=== PATIENT | male | born 1985 | race Caucasian/White ===

== ENCOUNTER 2021-03-23 03:02 | Emergency (ER) | payer OTHER, SELFPAY ==
--- NOTE | ~2021-03-23 | XR_ITS ---
EXAMINATION: XR HAND/WRIST, RIGHT CLINICAL INFORMATION: Rule out fracture COMPARISON: None TECHNIQUE: 3 views of the right hand/wrist FINDINGS: There is an angulated appearance of the fifth metacarpal neck. This has the appearance of a chronic healed fracture. No acute fracture is seen. Joint spaces are maintained. The carpal rows are well aligned. The soft tissues are unremarkable. XR/XR hand wrist RT IMPRESSION: No evidence of acute fracture or malalignment.
[2021-03-23 03:16] VITALS: BP 123/84; PULSE 114; RESP 18; TEMP 37; O2SAT 96; BMI 29.8
--- NOTE | 2021-03-23 03:58 | ED.EXTPRO ---
HPI - Extremity Problem General Chief complaint: Extremity Injury, Upper Stated complaint: Hand Injury Time Seen by Provider: 03/23/21 03:29 Source: patient Mode of arrival: ambulatory Limitations: no limitations History of Present Illness HPI Narrative: Patient comes emergency room complaining of right hand pain. Patient states that earlier this morning, patient was drinking, patient states that the bottom of his jeans got stuck in his shoe, patient tripped and fell. Patient tried hanging onto the rail, however he hit his hand and his fingers. No complaining of localized hand pain. Patient states that he did not hit his head, did not lose consciousness., patient states that he did hit his head, however when I spoke to him, he denied it. Patient denies headache, neck pain, denies being on blood thinners. MD Complaint: extremity pain Related Data Previous Rx's Medication Instructions Recorded acetaminophen 650 mg PO Q8H PRN #14 tab 03/23/21 Allergies Allergy/AdvReac Type Severity Reaction Status Date / Time tramadol Allergy Rash Verified 03/23/21 03:15 ibuprofen AdvReac Diarrhea Verified 03/23/21 03:15 Review of Systems Review of Systems: Constitutional : No Weight loss, No Fever, No Chills, No Night Sweats, No Fatigue, No Malaise ENT/Mouth : No Hearing loss, No Ear Pain, No Nasal Congestion, No Sinus Pain, No Hoarseness, No sore throat, No Rhinorrhea, No Swallowing Difficulty Eyes: No Eye Pain, No Swelling, No Redness, No Foreign Body, No Discharge, No Vision Changes Cardiovascular : No Chest Pain, No SOB, No Dyspnea on Exertion, No Orthopnea, No Edema, No Palpitations Respiratory : No Cough, No Sputum, No Wheezing, No Smoke Exposure, No Dyspnea Gastrointestinal : No Nausea, No Vomiting, No Diarrhea, No Constipation, No abdominal Pain, No Hematochezia, No Melena Genitourinary : no irregular bleeding, No Dysuria, No Urinary Frequency, No Hematuria, No Urinary Incontinence, No Urgency, No Flank Pain, No Urinary Flow Changes, No Hesitancy Musculoskeletal : Complaining of right-sided hand pain dorsal aspect, No Myalgias, No Joint Swelling Skin : No Skin Lesions, No rash Neuro : No Weakness, No Numbness, No Paresthesias, No Loss of Consciousness, No Dizziness, No Headache Psych : No Anxiety/Panic, No Depression, No SI/HI/AH/VH, No Social Issues, Heme/Lymph: No Bruising, No Bleeding,No Lymphadenopathy Endocrine : No Polyuria, No Polydipsia, No Temperature Intolerance [facility] Past Medical History Medical History Diabetes GERD (gastroesophageal reflux disease) IBS (irritable bowel syndrome) Social History Social History Advance Directives: No Advance Directives Information Provided: No Physical Exam Vital Signs: Vital Signs: Last Vital Signs Temp 98.6 F 03/23/21 03:16 Pulse 114 H 03/23/21 03:16 Resp 18 03/23/21 03:16 BP 123/84 03/23/21 03:16 Pulse Ox 96 03/23/21 03:16 Body Mass Index 29.8 Appearance: Alert. Oriented X3. No acute distress. Eyes: Pupils equal, round and reactive to light. ENT: Pharynx normal. Neck: Normal inspection. Neck supple. No lymph nodes noted. No crepitus CVS: Normal heart rate and rhythm. Pulses normal. Normal S1 and S2 Respiratory: No respiratory distress. Breath sounds normal. No Wheezing. No rales Abdomen: Soft and nontender. No rigidity. No distention. good BS x4 Skin: Skin warm and dry. Normal skin color. Normal skin turgor. Extremities: No lower extremity edema. Pain to palpation on the right hand dorsal aspect especially the 3rd through 5th metacarpals. Patient is able to open and close his hand but states that hurts. No wrist pain, no elbow pain, no shoulder pain , no lacerations or abrasions. Good radial palpable pulses bilaterally Neuro: Oriented X 3. No motor deficit. No sensory deficit. Moving all extermities. No slurred speech. Course Course Course Narrative: I discussed the x-ray with the patient, there seems to be an old angulated 5th metacarpal fracture. Patient states that he has no history of previous fractures in that hand. 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 I discussed with the patient that we will go ahead and treated as an acute fracture. Patient will be splinted and is to follow-up with orthopedics. Patient requests that no narcotics are to be prescribed to him MDM - Extremity (Nontraumatic) Imaging Data Right hand x-ray: Radiologist's impression: There is an angulated appearance of the fifth metacarpal neck. This has the appearance of a chronic healed fracture. No acute fracture is seen. Joint spaces are maintained. The carpal rows are well aligned. The soft tissues are unremarkable. XR/XR hand wrist RT IMPRESSION: No evidence of acute fracture or malalignment. Discharge Plan Discharge Clinical Impression: Closed fracture of fifth metacarpal bone Qualifiers: Encounter type: initial encounter Metacarpal location: unspecified portion of metacarpal Fracture alignment: nondisplaced Laterality: right Qualified Code(s): S62.306A - Unspecified fracture of fifth metacarpal bone, right hand, initial encounter for closed fracture Patient Disposition: Home, Self-Care Instructions: Boxer Fracture (ED) Additional Instructions: Please call orthopedics tomorrow to schedule an appointment. Also, Please follow-up with your primary care physician tomorrow. If you have any worsening or new symptoms, please return to the emergency room or call 911 Prescriptions: New acetaminophen 650 mg tablet extended release 650 mg PO Q8H PRN (Reason: pain) Qty: 14 RF: 0 Referrals: Kamille Nunn PA-C [[facility]] - 2 days
[2021-03-23] MEDS: Acetaminophen 325 MG TABLET 650 MG PO (04:04)
--- NOTE | 2021-03-23 04:05 | PC.NURSE ---
Pt medicated per JAN for 1010 pain. Pt provided with food/drink. Pt encouraged to eat/drink and rest prior to discharge. rehabilitation therapy technician at bedside for splint.
--- NOTE | 2021-03-23 04:23 | PC.NURSE ---
Pt requesting to leave. This RN speaking with MD due to pts strong level of halitosis. Per MD, pt is only able to be discharged if he has a sober ride. Per pt I only had two 24 oz beers! I'm fine, I drove [place] [address] here. wool cleaner at bedside discussing situation with pt. wool cleaner offering to call [employer] or find pt a sober ride home. Pt provided with food/drink. 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
--- NOTE | 2021-03-23 04:29 | PC.NURSE ---
Pt refusing to allow this RN to call his sister for a sober ride.
--- NOTE | 2021-03-23 04:45 | PC.NURSE ---
Pt refusing to allow staff to draw blood to obtain an alcohol level to ensure pt is clinically sober and able to drive home.
--- NOTE | 2021-03-23 05:09 | PC.NURSE ---
Pt again requesting discharge, states I am fine, I only drank two 24 oz beers! Per MD, pt is unable to drive home and needs to call a sober ride.
== END 2021-03-23 05:54 | disposition home or self-care (01) ==
PROVIDERS: Emergency Provider Emergency Medicine
DX: S62.366A Nondisplaced fracture of neck of fifth metacarpal bone, right hand, initial encounter for closed fracture (principal); W22.09XA Striking against other stationary object, initial encounter; Y93.89 Activity, other specified; Y92.019 Unspecified place in single-family (private) house as the place of occurrence of the external cause; Y99.9 Unspecified external cause status
CPT/HCPCS: 29125; 73110; 73130; 99283